=== PATIENT | female | born 1990 ===

== ENCOUNTER 2016-12-22 19:48 | Emergency (ER) | payer BC, MEDICAID ==
[2016-12-22 15:02] VITALS: BMI 24.4
--- NOTE | 2016-12-22 21:55 | US ---
EXAM: US Abdomen Limited, Right Upper Quadrant CLINICAL HISTORY: 26 years old, female; Pain; Abdominal pain; Epigastric; ; Additional info: Mid epigastric pain, pancreas and gallbladder TECHNIQUE: Real-time ultrasound of the right upper quadrant with image documentation. COMPARISON: No relevant prior studies available. FINDINGS: Liver: Normal echogenicity. No mass. No intrahepatic bile duct dilatation. Gallbladder: No gallstones. No wall thickening. No pericholecystic fluid. No sonographic Virgen's sign. Common bile duct: No dilatation. No stones. Pancreas: Unremarkable as visualized. Right kidney: Normal echogenicity. No hydronephrosis. IMPRESSION: 1.No acute findings.
[2016-12-23 02:12] VITALS: BP 111/68; PULSE 98; RESP 18; TEMP 97.9
--- NOTE | 2016-12-23 07:04 | OBDCSUM ---
Datetime: 12/22/2016 22:02 Discharged to, Provider: Home Follow up at, Provider: Dr Solis Disch Instr Activity: Normal activity Disch Instr Diet: Regular Discharge Instructions, Provider: Routine instructions given Discharge Time: 12/22/2016 22:05 Follow up in weeks, Provider: as scheduled- next OB visit in 2 weeks Disch Referrals: None Discharge Comment, Provider: 26 y/o F , IUP@ 24.4 weeks by US, LEV 04/09/17, with PMH of Gastrit is comes to the [facility] c/o Mid epigastric pain. - VS: stable, Afebrile pt observed and evaluated, CBC, CMP, UA, abdo US, LFTs unremarkable pt d/c home with f/u Dr. Solis Discussed with Dr. Chase --- Mitul Vega, PGY-1 Discharge Diagnosis Prov Other: mid epi-gastric pain
--- NOTE | 2016-12-23 07:05 | OBHP ---
Datetime: 12/22/2016 20:38 IP Adm Impression: , intrauterine ; No Active Labor; Intact Membranes IP Admit Plan: Observation/Evaluation Admit Comment, IP Provider: 26 y/o F , IUP@ 24.4 weeks by US, LEV 04/09/17, with PMH of Gastriti s comes to the [facility] c/o Mid epigastric pain, radiating to left and back, 5/10 pain which comes and go es and started 3 days ago. not associated with any food and activities. Pt went to [facility], CBC, CMP, UA and US was done there, pt signed AMA and came to [facility]. +FM, negative CTX/LOF/BV PNC: Dr. Solis - charrt rev'd PNI: none PMH: Gastritis, was taking PPI until + (stopped because of her boyfriend's concern of ef fects to baby) PSH: eye and hemorrhoid Meds: PNV Allg: NKDA SH: no alcohol, smoking or drug use A/P: 26 y/o F , IUP@ 24.4 weeks by US, LEV 04/09/17 Abd pain - CBC, CMP, UA, US unremarkable, - f/u Amylase - f/u abdo US (gallbladder/pancr) - observe and re-evaluate - PTL precautions given - Dr. Solis aware Case discussed with Dr. Chase --- Mitul Vega, PGY-1 addendum: Amylase 104 and Abdo US showed unremarkable gallbladder and no acute findings. pt d/c home with PTL precautions and f/u Dr. Solis Results discusssed with Dr. Chase --- Mitul Vega, PGY-1 OB Hospitalist note: This pt was seen and examined by me. Agree with above note. MAHNDO Pelvic Type - PN: Adequate Extremities - PN: Normal Abdomen - PN: Abnormal Back - PN: Normal Breast - PN: Not Done Lungs - PN: Normal Heart - PN: Normal Thyroid - PN: Normal Neurologic - PN: Normal HEENT - PN: Normal General - PN: Normal FHR - Baseline A Provider: 150 Comments, ACOG Physical Exam: abdo tenderness at epigastric, no rebound, ND ROS: General: no weakness; no fatigue HEENT: no POLANCO; no visual dist CV: no palpitations; no no CP GI: no N/V no diarhea : no F/U/D MS: No joint pain IP Hx Assessment: The History has been Reviewed and is Current EGA AdmitDate IP: 24.1 Vital Signs Provider: Reviewed; Within Normal Limits IP Chief Complaint: Maternal discomfort NICHD Variability Prov Fetus A: Moderate 6-25bpm NICHD Accel Fetus A IP Provider: 10X10 FHR Category Provider Fetus A: Category I NICHD Decel Fetus A IP Provider: None Genitourinary Exam: Normal DTRs - PN: Normal
== END 2016-12-22 22:05 | disposition home or self-care (01) ==
LOC: H.EROB2 19:48 → H.EROB 21:00 → H.EROB2 22:05
DX: O47.02 False labor before 37 completed weeks of gestation, second trimester (principal); Z3A.24 24 weeks gestation of pregnancy

== ENCOUNTER 2017-03-10 18:00 | Emergency (ER) | payer BC, MEDICAID ==
[2017-03-10] MEDS: Lactated Ringer's 1,000 ML IV SCH ×2 (20:10→20:40)
[2017-03-10 20:19] VITALS: BMI 28.1
[2017-03-10] MEDS ORDERED: Lactated Ringer's 1,000 ML IV SCH ×2 (20:30→21:30)
[2017-03-11 04:21] VITALS: BP 122/71; PULSE 98; RESP 18; TEMP 98.1; O2SAT 99
== END 2017-03-11 00:13 | disposition home or self-care (01) ==
LOC: H.EROB2 18:00 → H.EROB 18:26 → H.EROB2 03-11 00:13
DX: O34.60 Maternal care for abnormality of vagina, unspecified trimester (principal); N89.8 Other specified noninflammatory disorders of vagina; Z3A.34 34 weeks gestation of pregnancy; O47.03 False labor before 37 completed weeks of gestation, third trimester
CPT/HCPCS: 99283; J7120

== ENCOUNTER 2017-03-29 15:01 | Emergency (ER) | payer BC, MEDICAID ==
[2017-03-29 15:29] VITALS: BMI 29.0
--- NOTE | 2017-03-29 15:42 | OBHP ---
Datetime: 03/29/2017 15:37 IP Adm Impression: Term, intrauterine ; No Active Labor; Intact Membranes IP Admit Plan: Observation/Evaluation Admit Comment, IP Provider: IUP at 37w EDC Apr 16...pt Dr Solis ([facility] chart rev'd)...c/o ba ck and abd pain since last nght. No SROM. no VB. +FM. No meds taken POBH: x 1; TOP x 2 PGYNH: HPV+ LGSIL PAP PMH: denies PSH: eye surgery NKA PSOH: denies smoking; ETOH drugs A; IUP at 37w latent phase of labor PLAN: monitor for sign of active labor Ambulate Pelvic Type - PN: Adequate Extremities - PN: Normal Abdomen - PN: Normal Back - PN: Normal Breast - PN: Not Done Lungs - PN: Normal Heart - PN: Normal Thyroid - PN: Normal Neurologic - PN: Normal HEENT - PN: Normal General - PN: Normal Presentation-Admit: Vertex FHR - Baseline A Provider: 150 Membranes, Provider: Intact Contraction Comments Provider: 1-2m Pool Provider: Negative IP Hx Assessment: The History has been Reviewed and is Current EGA AdmitDate IP: 37.3 IP Chief Complaint: Uterine contractions NICHD Variability Prov Fetus A: Moderate 6-25bpm NICHD Accel Fetus A IP Provider: 15X15 FHR Category Provider Fetus A: Category I NICHD Decel Fetus A IP Provider: None Dilatation, Provider: 1 Effacement, Provider: long Station, Provider: high Genitourinary Exam: Normal DTRs - PN: Normal
--- NOTE | 2017-03-29 18:57 | OBDCSUM ---
Datetime: 03/29/2017 16:29 Discharged to, Provider: Home Follow up at, Provider: Dr Solis Disch Instr Activity: Normal activity Disch Instr Diet: Regular Discharge Diagnosis, Provider: False Labor - Undelivered Discharge Time: 03/29/2017 16:30 Follow up in weeks, Provider: Next Scheduled appointment Disch Referrals: None
[2017-04-01] MEDS ORDERED: Lactated Ringer's 1,000 ML IV SCH ×2 (14:45)
[2017-04-01 15:18] LABS: BASO % 0.5 % (0.0-2.0); EOS # 0.1 K/uL (0.0-0.7); EOS % 0.8 % (0.0-4.0); LYMPH # 1.9 K/uL (1.0-4.3); LYMPH % 21.1 % (20.0-40.0); MEAN CELL VOLUME 83.8 fl (81.0-99.0); MEAN CORPUSCULAR HEMOGLOBIN 27.6 pg (27.0-31.0); MEAN PLATELET VOLUME 9.1 fl (7.2-11.7); MONO # 0.8 K/uL (0.0-0.8); MONO % 8.7 % (0.0-10.0); NEUT # 6.2 K/uL (1.8-7.0); NEUT % 68.9 % (50.0-75.0); NRBC % 0.3 % (0.0-0.0); RED CELL DISTRIBUTION WIDTH 20.4 % (11.5-14.5)
== END 2017-03-29 16:27 | disposition home or self-care (01) ==
LOC: H.EROB2 15:01 → H.L&D 21:49 → H.EROB2 04-01 14:35 → H.L&D 04-01 14:35 → UNDOADMIN 04-01 14:35
DX: O47.1 False labor at or after 37 completed weeks of gestation (principal); Z3A.37 37 weeks gestation of pregnancy; O26.93 Pregnancy related conditions, unspecified, third trimester; R10.2 Pelvic and perineal pain

== ENCOUNTER 2017-04-01 12:11 | Inpatient (IN) | payer BC, MEDICAID ==
[2017-04-01] MEDS: Lactated Ringer's 1,000 ML IV SCH ×3 (14:40→23:00)
--- NOTE | 2017-04-01 20:21 | OBADHP ---
Datetime: 04/01/2017 20:12 IP Chief Complaint Other: abd and back pains Extremities - PN: Normal Abdomen - PN: Abnormal Back - PN: Normal Breast - PN: Normal Lungs - PN: Normal Heart - PN: Normal Thyroid - PN: Normal Neurologic - PN: Normal HEENT - PN: Normal General - PN: Normal FHR - Baseline A Provider: 140 Amniotic Fluid Color, Provider: Clear Membranes, Provider: Ruptured Contraction Comments Provider: irreg Gestation - Est Wks by US: 37w 6d Pool Provider: Positive IP Hx Assessment: The History has been Reviewed and is Current Vital Signs Provider: Reviewed IP Chief Complaint: Suspected ruptured membranes; Other NICHD Variability Prov Fetus A: Moderate 6-25bpm NICHD Accel Fetus A IP Provider: 10X10 NICHD Decel Fetus A IP Provider: None Dilatation, Provider: 1cm Effacement, Provider: 50% Station, Provider: -2 Genitourinary Exam: Normal DTRs - PN: Normal EGA AdmitDate IP: 37.6 IP Adm Impression: Term, intrauterine ; Ruptured Membranes IP Admit Plan: Admit to unit; Initiate labor augmentation protocol Datetime: 03/29/2017 15:37 Admit Comment, IP Provider: IUP at 37w EDC Apr 16...pt Dr Solis ([facility] chart rev'd)...c/o ba ck and abd pain since last nght. No SROM. no VB. +FM. No meds taken POBH: x 1; TOP x 2 PGYNH: HPV+ LGSIL PAP PMH: denies PSH: eye surgery NKA PSOH: denies smoking; ETOH drugs A; IUP at 37w latent phase of labor PLAN: monitor for sign of active labor Ambulate Pelvic Type - PN: Adequate Presentation-Admit: Vertex FHR Category Provider Fetus A: Category I Datetime: 12/22/2016 20:38 Comments, ACOG Physical Exam: abdo tenderness at epigastric, no rebound, ND ROS: General: no weakness; no fatigue HEENT: no POLANCO; no visual dist CV: no palpitations; no no CP GI: no N/V no diarhea : no F/U/D MS: No joint pain
[2017-04-01] MEDS ORDERED: Fentanyl/Bupivacaine HCl 250 ML EPI ONE (23:59)
[2017-04-01] MEDS ORDERED: Bupivacaine HCl 0.25% PF (10 ml) Inj ONE (23:59)
[2017-04-02] MEDS: Lactated Ringer's 1,000 ML IV SCH (05:48)
[2017-04-02] MEDS ORDERED: Lidocaine 1% Inj (20ml) ONE (06:14)
[2017-04-02] MEDS ORDERED: Oxytocin 30 UNITS in Sodium Chloride 0.9% 500 ML IV ONE (06:30)
[2017-04-02] MEDS ORDERED: Benzocaine/Menthol SPRAY TOP PRN (08:33)
--- NOTE | 2017-04-02 08:46 | OBDS ---
MATERNAL INFORMATION Estimated Blood Loss (ml): 200cc Maternal Complications: None Provider Comments: Delivered a living baby boy appears term cried spontaneously, 9/9, Af clear Placenta complete and intact Episiotomy done and repaired as above No complications Uterus contracte d well, no vaginal or cervical tears noted, rectal done no defects. Tolerated procedure well. LABOR SUMMARY EDC: 04/16/2017 00:00 No. Babies in Womb: 1 Attempted: No Labor Anesthesia: Epidural LABOR INFORMATION Reason for Induction: Not Applicable Cervical Ripening Agents: Cervidil Group B Beta Strep: Negative Steroids Given: None Reason Steroids Not Administered: Not Applicable MEMBRANES Membranes Rupture Method: Spontaneous (Annotations: high leak) Rupture of Membranes: 04/01/2017 10:30 Amniotic Fluid Color: Clear Amniotic Fluid Amount: Small Amniotic Fluid Odor: Normal VAGINAL DELIVERY Episiotomy: Median Laceration Extension: First Degree Laceration Type: Perineal; Vaginal Laceration Repair: Yes Laceration Repair Note: medial episiotomy done 1st dg repaired with 2-0 chromic without any complica tions. Sponge Count Correct: Yes Sharps Count Correct: Yes Count Comment: count correct and verified by RN CSECTION DELIVERY Primary Indication: N/A Secondary Indication: N/A CSection Incision: N/A Uterine Closure: N/A BABY A INFORMATION Born in Route : No : N/A PRESENTATION/POSITION BABY A Presentation: Cephalic IDENTIFICATION/MEDS BABY A ID Band Number: [id number] ID Band Location: Left Leg; Left Arm
[2017-04-02] MEDS ORDERED: Phenaphthazine-PH Test Paper VI ONE (11:26)
[2017-04-02] MEDS ORDERED: Influenza Vaccine 18yr & older 0.5 ML/45 MCG SYR IM ONE (14:49)
[2017-04-03 07:31] LABS: HEMATOCRIT 31.6 % (34.0-47.0); MEAN CORPUSCULAR HEMOGLOBIN 27.5 pg (27.0-31.0); MEAN CORPUSCULAR HGB CONC 32.3 g/dL (33.0-37.0); RED CELL DISTRIBUTION WIDTH 21.4 % (11.5-14.5); WHITE BLOOD COUNT 12.3 K/uL (4.8-10.8)
--- NOTE | 2017-04-03 07:51 | OBPPN ---
Datetime: 04/03/2017 07:45 PP Pain Prov: Within normal limits PP Nausea Prov: Denies PP Flatus Prov: Yes PP BM Prov: No PP Breasts Prov: Normal PP Heart Prov: Normal PP Lungs Prov: Normal PP Abdomen/Uterus Prov: Normal PP Lochia Prov: Normal PP Vulva/Perineum Prov: Normal PP CVA Tenderness Prov: Normal PP Extremities Prov: Normal PP Progress Prov: Normal PP Impression Prov: Normal progression PP Plan Prov: Continue present management PP Progress Note Prov: stable ppd1 continue present care IP PP Procedures: None
[2017-04-03] MEDS: Oxycodone/Acetaminophen 5/325 mg Tab PO PRN ×2 (08:36→16:09)
--- NOTE | 2017-04-04 11:12 | OBDCSUM ---
Datetime: 04/04/2017 11:10 Discharged to, Provider: Home Follow up at, Provider: Dr Solis Disch Instr Activity: Bedrest; May be up to bathroom; May be up for meals; May Shower Disch Instr Diet: Regular Discharge Instructions, Provider: Routine instructions given Discharge Diagnosis, Provider: Term Delivered Follow up in weeks, Provider: 4-6 wks Disch Referrals: None Contraception discussed, Prov: Yes Disch Activity Restrictions: No exercising; No lifting; No driving; Minimize walking; Minimize stair -climbing; No sexual activity; Nothing in vagina - [place], tampons, douche Discharge Comment, Provider: Continue PNC vit and iron Pelvic rest Contraception after Delivery: Undecided
--- NOTE | 2017-04-04 11:12 | OBPPN ---
Datetime: 04/04/2017 11:07 PP Pain Prov: Within normal limits PP Pain Prov comment: No SOB, chest or leg pains PP Nausea Prov: Denies PP Flatus Prov: Yes PP Breasts Prov: Normal PP Lungs Prov: Normal PP Abdomen/Uterus Prov: Abnormal PP Lochia Prov: Normal PP Vulva/Perineum Prov: Abnormal PP CVA Tenderness Prov: Normal PP Extremities Prov: Normal PP C/S Incision Prov: Not Applicable PP Progress Prov: Normal PP Comments Phys Exam Prov: breast nt, not engorged Abd soft ND, fundus firim below the umb. NT Per ineum repaired ext no calf tenderness PP Impression Prov: Normal progression PP Plan Prov: Discharge PP Progress Note Prov: D/C home with instructions IP PP Procedures: None Vital Signs Provider PP: Reviewed
[2017-04-04 18:59] VITALS: BP 129/76; PULSE 70; RESP 16; TEMP 97.7; O2SAT 100
== END 2017-04-04 13:55 | disposition home or self-care (01) | DRG 775 ==
LOC: H.EROB2 12:11 → H.EROB 13:05 → H.L&D 17:48 → H.EROB2 17:52 → H.OB/GYN 04-02 10:19
PROVIDERS: ADMIT Specialist; ATTEND Specialist
PROC: 4A1HXCZ Monitoring of Products of Conception, Cardiac Rate, External Approach (ICD-10-PCS; 2017-04-01)
PROC: 0W8NXZZ Division of Female Perineum, External Approach (ICD-10-PCS; principal; 2017-04-02)
PROC: 10E0XZZ Delivery of Products of Conception, External Approach (ICD-10-PCS; 2017-04-02)
PROC: 0HQ9XZZ Repair Perineum Skin, External Approach (ICD-10-PCS; 2017-04-02)
DX: O70.0 First degree perineal laceration during delivery (principal); R87.612 Low grade squamous intraepithelial lesion on cytologic smear of cervix (LGSIL); Z37.0 Single live birth; Z3A.37 37 weeks gestation of pregnancy